=== PATIENT | male | born 1975 | race Caucasian/White ===

== ENCOUNTER 2025-09-29 12:29 | Inpatient (IN) | payer OTHER ==
[~2025-09-29] VITALS: Ht 170.2 cm; Wt 72.6 kg
[2025-09-29] MEDS ORDERED: THIAMINE HCL 100 MG TABLET ONE (13:06)
[2025-09-29] MEDS ORDERED: LORAZEPAM INJ 2 MG/ML VIAL ONE (13:06)
[2025-09-29] MEDS ORDERED: FOLIC ACID 1 MG TABLET ONE (13:06)
[2025-09-29] MEDS: FOLIC ACID 1 MG TABLET PO ONE (13:15)
[2025-09-29] MEDS: LORAZEPAM INJ 2 MG/ML VIAL IV ONE (13:15)
[2025-09-29] MEDS: THIAMINE HCL 100 MG TABLET PO ONE (13:15)
[2025-09-29] MEDS: IV NS 0.9% 1,000 ML BAG IV ONE (13:15)
[2025-09-29 13:30] LABS: PLATELET COUNT (AUTO) 156 K/uL (150-450); RED BLOOD CELL COUNT(AUTO) 5.45 MIL/uL (4.5-6.0); RED CELL DISTRIBUTION WIDTH 13.3 % (11.5-15.0); WHITE BLOOD COUNT (AUTO) 4.1 K/uL (4.3-11.0)
[2025-09-29 13:46] LABS: CALCIUM, SERUM 8.7 mg/dL (8.5-10.1); CREATININE 1.1 mg/dL (0.6-1.3); SODIUM SERUM 143.0 mmol/L (136-145); UREA NITROGEN, BLOOD 10.0 mg/dL (7-18)
[2025-09-29 13:57] LABS: ASPARTATE AMINOTRANSFERASE 57.0 U/L (15-37); TOTAL PROTEIN, SERUM 7.0 g/dL (6.4-8.2)
[2025-09-29] MEDS ORDERED: GABA-532 PO (16:37)
[2025-09-29] MEDS ORDERED: VENL37.581 PO (16:37)
[2025-09-29] MEDS ORDERED: ARIP5TAB10 PO (16:37)
[2025-09-29] MEDS ORDERED: Z GUARD REMEDY 4 OZ OINT TP PRN (17:30)
[2025-09-29] MEDS ORDERED: MAGNESIUM HYDROXIDE 30 ML UDC PO PRN (17:30)
[2025-09-29] MEDS ORDERED: MAG HYDROX/AL HYDROX/SIMETH 30 ML UDC PO PRN (17:30)
[2025-09-29] MEDS ORDERED: ONDANSETRON HCL/PF 4 MG/2 ML VIAL IVP PRN (17:30)
[2025-09-29] MEDS: IV NS 0.9% 1,000 ML IV PRN (17:47)
[2025-09-29 18:13] VITALS: BP 133/93; TEMP 97.7; O2SAT 97
[2025-09-29] MEDS: CHLORDIAZEPOXIDE HCL 25 MG CAPSULE PO SCH (18:37)
[2025-09-29 19:00] VITALS: BP 120/83; TEMP 97.9; O2SAT 97
[2025-09-29] MEDS: GABAPENTIN 300 MG CAPSULE PO SCH (21:29)
[2025-09-30] VITALS: BP 130/83; TEMP 98.2; O2SAT 100
[2025-09-30 03:00] VITALS: BP 130/94; TEMP 98.7; O2SAT 99
[2025-09-30] MEDS: LORAZEPAM INJ 2 MG/ML VIAL IV PRN (04:33)
[2025-09-30 06:50] LABS: RED BLOOD CELL COUNT(AUTO) 4.52 MIL/uL (4.5-6.0); RED CELL DISTRIBUTION WIDTH 13.6 % (11.5-15.0); WHITE BLOOD COUNT (AUTO) 2.4 K/uL (4.3-11.0)
[2025-09-30 06:56] LABS: PLATELET COUNT (AUTO) 101 K/uL (150-450)
[2025-09-30 07:00] VITALS: BP 128/77; TEMP 97.5; O2SAT 96
[2025-09-30 07:25] LABS: ASPARTATE AMINOTRANSFERASE 33.0 U/L (15-37); CALCIUM, SERUM 8.4 mg/dL (8.5-10.1); CREATININE 0.6 mg/dL (0.6-1.3); PHOSPHORUS 3.8 mg/dL (2.5-4.9); SODIUM SERUM 142.0 mmol/L (136-145); TOTAL PROTEIN, SERUM 5.5 g/dL (6.4-8.2); UREA NITROGEN, BLOOD 8.0 mg/dL (7-18)
[2025-09-30] MEDS: PANTOPRAZOLE 40 MG VIAL IV SCH (08:33)
[2025-09-30] MEDS: VENLAFAXINE XR 37.5 MG CAP.SR.24H PO SCH (08:34)
[2025-09-30] MEDS: ARIPIPRAZOLE 5 MG TABLET PO SCH (08:35)
[2025-09-30] MEDS ORDERED: Thiamine 100 MG in IV D5W 50 ML IV SCH (09:00)
[2025-09-30] MEDS: THIAMINE HCL 100 MG TABLET PO SCH (10:02)
[2025-09-30 12:00] VITALS: BP 124/74; TEMP 98.1; O2SAT 99
[2025-09-30] MEDS: ACETAMINOPHEN 325 MG TABLET PO PRN (12:50)
[2025-09-30] MEDS ORDERED: Thiamine HCL PO (14:04)
[2025-09-30] MEDS ORDERED: CHLO25CA22 PO (14:04)
== END 2025-09-30 17:50 | disposition home or self-care (01) | DRG 897 ==
LOC: ER 12:47 → TELE1 15:33
PROVIDERS: ADMIT Nurse Practitioner Acute Care; ATTEND Nurse Practitioner Acute Care
DX: F10.139 Alcohol abuse with withdrawal, unspecified (principal); E86.0 Dehydration; Y90.8 Blood alcohol level of 240 mg/100 ml or more; F41.9 Anxiety disorder, unspecified; Z79.899 Other long term (current) drug therapy; R74.01 Elevation of levels of liver transaminase levels; Z86.59 Personal history of other mental and behavioral disorders
CPT/HCPCS: 36415; 80048-TC; 80053-TC; 80076-TC; 83690-TC; 83735-TC; 84100-TC; 85025-TC; A4223; G0378; G0480; J2060; J2470; J3411; J7030; J7060

== ENCOUNTER 2025-10-03 18:18 | Emergency (ER) | payer OTHER ==
[~2025-10-03] VITALS: Ht 170.2 cm; Wt 74.8 kg
[~2025-10-03 18:18] MED LIST: ARIP5TAB10 PO; CHLO25CA22 PO; GABA-532 PO; Thiamine HCL PO; VENL37.581 PO
[2025-10-03 18:35] VITALS: TEMP 98.4
[2025-10-03] MEDS ORDERED: ONDANSETRON 4 MG TAB.RAPDIS ONE (18:42)
[2025-10-03] MEDS: IV NS 0.9% 1,000 ML BAG IV ONE ×2 (18:50→20:49)
[2025-10-03] MEDS: ONDANSETRON 4 MG TAB.RAPDIS PO ONE (18:50)
[2025-10-03 18:57] LABS: PLATELET COUNT (AUTO) 139 K/uL (150-450); RED BLOOD CELL COUNT(AUTO) 5.51 MIL/uL (4.5-6.0); RED CELL DISTRIBUTION WIDTH 13.5 % (11.5-15.0); WHITE BLOOD COUNT (AUTO) 5.1 K/uL (4.3-11.0)
[2025-10-03] MEDS ORDERED: LORAZEPAM INJ 2 MG/ML VIAL ONE ×2 (19:12→20:41)
[2025-10-03] MEDS: LORAZEPAM INJ 2 MG/ML VIAL IVP ONE (19:15)
[2025-10-03 19:17] LABS: CALCIUM, SERUM 8.1 mg/dL (8.5-10.1); CREATININE 1.0 mg/dL (0.6-1.3); SODIUM SERUM 140 mmol/L (136-145); UREA NITROGEN, BLOOD 7 mg/dL (7-18)
[2025-10-03 19:20] LABS: AMPHETAMINE, URINE NEGATIVE (NEGATIVE); BARBITURATE, URINE NEGATIVE (NEGATIVE); CANNABINOID, URINE NEGATIVE (NEGATIVE); COCCAINE, URINE NEGATIVE (NEGATIVE); OPIATE, URINE NEGATIVE (NEGATIVE)
[2025-10-03 19:21] LABS: ALCOHOL, BLOOD 332 mg/dL (0-10); ASPARTATE AMINOTRANSFERASE 59 U/L (15-37); TOTAL PROTEIN, SERUM 6.9 g/dL (6.4-8.2)
[2025-10-03 19:23] LABS: APPEARANCE,URINE CLEAR (CLEAR); BLOOD, URINE NEGATIVE Ery/uL (NEGATIVE); LEUKOCYTE ESTERASE ,URINE NEGATIVE (NEGATIVE); NITRITE, URINE NEGATIVE (NEGATIVE); UGLUCOSE 1+ mg/dL (NEGATIVE)
[2025-10-03 19:24] LABS: BENZODIAZEPINE, URINE POSITIVE (NEGATIVE)
[2025-10-03 19:45] LABS: ADD URINE CULTURE NO; SQUAMOUS EPITHELIAL CELL,UR Few /HPF (None Seen)
[2025-10-03] MEDS ORDERED: ONDANSETRON HCL/PF 4 MG/2 ML VIAL ONE (20:05)
[2025-10-03] MEDS: ONDANSETRON HCL/PF - ER 4 MG/2 ML VIAL IV ONE (20:07)
[2025-10-03] MEDS: LORAZEPAM INJ 2 MG/ML VIAL IV ONE (20:48)
[2025-10-04 04:06] VITALS: BP 124/86; O2SAT 99
== END 2025-10-04 03:05 | disposition home or self-care (01) ==
LOC: ER 18:29
DX: F10.239 Alcohol dependence with withdrawal, unspecified (principal); Z79.899 Other long term (current) drug therapy; Y90.9 Presence of alcohol in blood, level not specified
CPT/HCPCS: 99285; 96374; 96361; 96376; 85025; 80048; 80076; 81001; 36415; 80143; 80320; 80307; J2060 ×2; J2405 ×2; J7030; Q0162; G0480